=== PATIENT | female | born 1995 | race Caucasian/White ===

== ENCOUNTER 2020-04-28 11:36 | Inpatient (IN) | payer MEDICAID, OTHER ==
[~2020-04-28] VITALS: Ht 162.6 cm; Wt 113.4 kg
[2020-04-28 12:30] LABS: BASOPHILS % (AUTO) 0.7 % (0.0-2.0); EOSINOPHILS % (AUTO) 1.1 % (1.0-6.0); HEMATOCRIT 42.3 % (36-46); LYMPHOCYTES # (AUTO) 2.8 K/uL (1.0-4.8); LYMPHOCYTES % (AUTO) 32.6 % (22.0-44.0); MEAN CORPUSCULAR HEMOGLOBIN 28.1 pg (26.0-34.0); MEAN CORPUSCULAR HGB CONC 33.2 G/dL (31.0-37.0); MEAN CORPUSCULAR VOLUME 85 fL (80-100); MONOCYTES # (AUTO) 0.7 K/uL (0.1-1.0); MONOCYTES % (AUTO) 8.6 % (2.0-9.0); PLATELET COUNT (AUTO) 290 K/uL (150-450); RED BLOOD CELL COUNT(AUTO) 4.99 MIL/uL (4.00-5.20); RED CELL DISTRIBUTION WIDTH 14.8 % (11.5-14.5)
[2020-04-28 12:37] LABS: ANION GAP 9 mmol/L (8-16); CALCIUM, TOTAL 9.1 mg/dL (8.8-10.5); CARBON DIOXIDE 28 mmol/L (22-29); CHLORIDE 106 mmol/L (98-107); CREATININE 0.73 mg/dL (0.60-1.30); GLOMERULAR FILTR. RATE CALC > 60 mL/min (>60); GLUCOSE,RANDOM 77 mg/dL (70-110); POTASSIUM 4.5 mmol/L (3.5-5.1); SODIUM SERUM 143 mmol/L (136-145); UREA NITROGEN, BLOOD 14 mg/dL (7-18)
[2020-04-28 12:41] LABS: AMPHET/METH SCREEN,URINE NEGATIVE (NEGATIVE); BARBITURATE SCREEN, URINE NEGATIVE (NEGATIVE); BENZODIAZEPINES SCREEN,URINE NEGATIVE (NEGATIVE); CANNABINOID SCREEN,URINE POSITIVE (NEGATIVE); COCAINE SCREEN,URINE NEGATIVE (NEGATIVE); METHADONE SCREEN, URINE NEGATIVE (NEGATIVE); OPIATE SCREEN,URINE NEGATIVE (NEGATIVE); PHENCYCLIDINE SCREEN,URINE NEGATIVE (NEGATIVE)
[2020-04-28 12:44] LABS: ALANINE AMINOTRANSFERASE 16 U/L (12-78); ALBUMIN 3.7 g/dL (3.4-5.0); ALKALINE PHOSPHATASE 106 U/L (46-116); ASPARTATE AMINOTRANSFERASE 11 U/L (15-37); BILIRUBIN,TOTAL 0.2 mg/dL (0.1-1.0); TOTAL PROTEIN, SERUM 7.9 g/dL (6.4-8.2)
[2020-04-28 16:10] LABS: COVID AG,FIA SOURCE NASOPHARYNGEAL
[2020-04-28] MEDS ORDERED: LORazepam 2 MG TABLET PO ONE (17:30)
[2020-04-28] MEDS ORDERED: HALOPERIDOL 5 MG TABLET PO PRN (17:45)
[2020-04-28] MEDS ORDERED: ZOLPIDEM TARTRATE 10 MG TABLET PO PRN (17:45)
[2020-04-28] MEDS: LORazepam 2 MG TABLET PO PRN (20:03)
[2020-04-28 21:36] VITALS: BP 133/96
[2020-04-28] MEDS ORDERED: PNEUMOCOCCAL VACCINE POLYVALENT 0.5 ML VIAL [PPSV23] IM ONE (22:15)
[2020-04-29 06:17] VITALS: BP 139/98
[2020-04-29] MEDS ORDERED: MAG HYDROX/AL HYDROX/SIMETH ES 30 ML SUSPENSION UDCUP PO PRN (07:00)
[2020-04-29] MEDS ORDERED: ONDANSETRON HCL 4 MG TABLET PO PRN (07:00)
[2020-04-29] MEDS ORDERED: GuaiFENesin/D-METHORPHAN [SUGAR-FREE] 200-20MG/10 ML SYRUP UDCUP PO PRN (07:00)
[2020-04-29] MEDS ORDERED: LOPERAMIDE HCL 2 MG CAPSULE PO PRN (07:00)
[2020-04-29] MEDS ORDERED: PETROLATUM,WHITE 28 GM JELLY TP PRN (07:00)
[2020-04-29] MEDS ORDERED: ALBUTEROL SULFATE HFA 90 MCG/PUFF 8 GM INHALER IH PRN (07:00)
[2020-04-29] MEDS ORDERED: CloNIDine HCL 0.1 MG TABLET PO PRN (07:00)
[2020-04-29] MEDS ORDERED: MAGNESIUM HYDROXIDE SUSPENSION 30 ML UDCUP PO PRN (07:00)
[2020-04-29] MEDS ORDERED: DOCUSATE SODIUM 100 MG CAPSULE PO PRN (07:00)
[2020-04-29] MEDS ORDERED: NICOTINE 14 MG/24 HOUR PATCH TD PRN (07:00)
[2020-04-29] MEDS ORDERED: IBUPROFEN 400 MG TABLET PO PRN (07:00)
[2020-04-29] MEDS ORDERED: ACETAMINOPHEN 325 MG TABLET PO PRN (07:00)
[2020-04-29] MEDS: NYSTATIN 15 GM POWDER BOTTLE TP SCH ×2 (08:33→16:09)
[2020-04-29] MEDS: LORazepam 2 MG TABLET PO PRN (08:33)
[2020-04-29 08:59] VITALS: BP 149/79
[2020-04-29] MEDS ORDERED: ARIPiprazole 10 MG TABLET PO SCH (09:00)
[2020-04-29] MEDS ORDERED: DiphenhydrAMINE HCL 50 MG/ML VIAL IM PRN (14:00)
[2020-04-29 16:15] VITALS: BP 124/63
[2020-04-30 05:37] VITALS: BP 131/91
[2020-04-30] MEDS: LORazepam 2 MG TABLET PO PRN ×2 (08:22→17:45)
[2020-04-30] MEDS: NYSTATIN 15 GM POWDER BOTTLE TP SCH ×2 (08:23→17:13)
[2020-04-30 08:48] VITALS: BP 109/67
[2020-04-30] MEDS ORDERED: ARIPiprazole 10 MG TABLET PO SCH (09:00)
[2020-04-30 16:20] VITALS: BP 144/61
[2020-05-01 06:54] VITALS: BP 147/80
[2020-05-01 08:08] LABS: CHOL/HDL RATIO 4.1 (3.9-5.7)
[2020-05-01 08:41] VITALS: BP 164/85
[2020-05-01] MEDS: ARIPiprazole 15 MG TABLET PO SCH (08:52)
[2020-05-01] MEDS: NYSTATIN 15 GM POWDER BOTTLE TP SCH ×2 (08:55→17:36)
[2020-05-01 17:05] VITALS: BP 144/94
[2020-05-02 00:32] VITALS: BP 130/78
[2020-05-02] MEDS: ARIPiprazole 15 MG TABLET PO SCH (08:01)
[2020-05-02] MEDS: NYSTATIN 15 GM POWDER BOTTLE TP SCH ×2 (08:01→16:18)
[2020-05-02 08:29] VITALS: BP 133/90
[2020-05-02 16:14] VITALS: BP 129/66
[2020-05-03 00:46] VITALS: BP 122/64
[2020-05-03] MEDS: ARIPiprazole 15 MG TABLET PO SCH (08:23)
[2020-05-03] MEDS: NYSTATIN 15 GM POWDER BOTTLE TP SCH ×3 (08:24→21:37)
[2020-05-03 08:45] VITALS: BP 119/84
[2020-05-03 17:28] VITALS: BP 131/78
[2020-05-04 01:03] VITALS: BP 107/70
[2020-05-04] MEDS: ARIPiprazole 15 MG TABLET PO SCH (08:11)
[2020-05-04] MEDS: NYSTATIN 15 GM POWDER BOTTLE TP SCH ×3 (08:12→18:45)
[2020-05-04 08:19] VITALS: BP 128/94
[2020-05-04 16:40] VITALS: BP 140/88
[2020-05-05 05:57] VITALS: BP 122/74
[2020-05-05] MEDS: NYSTATIN 15 GM POWDER BOTTLE TP SCH ×2 (08:08→16:47)
[2020-05-05] MEDS: ARIPiprazole 15 MG TABLET PO SCH (08:08)
[2020-05-05 08:12] VITALS: BP 132/81
[2020-05-05 16:13] VITALS: BP 122/74
[2020-05-06 05:43] VITALS: BP 129/76
[2020-05-06 08:04] VITALS: BP 137/81
[2020-05-06] MEDS: ARIPiprazole 15 MG TABLET PO SCH (08:14)
[2020-05-06] MEDS: NYSTATIN 15 GM POWDER BOTTLE TP SCH (08:14)
[2020-05-06] MEDS ORDERED: MULTIVITAMINS, THERAPEUTIC TABLET PO SCH (09:00)
[2020-05-06] MEDS ORDERED: NYST15PO3 TP (12:28)
[2020-05-06] MEDS ORDERED: ARIP15TA2 PO (12:28)
[2020-05-07] MEDS ORDERED: MULTIVITAMINS, THERAPEUTIC TABLET PO SCH (13:00)
== END 2020-05-06 14:50 | disposition home or self-care (01) | DRG 750 ==
LOC: EMS 11:36 → B2S 17:37
PROVIDERS: ADMIT Psychiatry & Neurology Child & Adolescent Psychiatry; ATTEND Psychiatry & Neurology Child & Adolescent Psychiatry
DX: F20.9 Schizophrenia, unspecified (principal); F32.9 Major depressive disorder, single episode, unspecified; I10 Essential (primary) hypertension; J06.9 Acute upper respiratory infection, unspecified; R45.851 Suicidal ideations; F41.9 Anxiety disorder, unspecified; E66.9 Obesity, unspecified; F12.10 Cannabis abuse, uncomplicated; Z20.828 Contact with and (suspected) exposure to other viral communicable diseases; Z59.0 Homelessness; Z91.19 Patient's noncompliance with other medical treatment and regimen; Z28.21 Immunization not carried out because of patient refusal; Z79.899 Other long term (current) drug therapy; Z88.8 Allergy status to other drugs, medicaments and biological substances; Z68.41 Body mass index [BMI] 40.0-44.9, adult
CPT/HCPCS: 87426; G0480; 36415-L1; 36415-TC; 71045-TC; 80061-TC